=== PATIENT | female | born 1970 | race Caucasian/White ===

== ENCOUNTER 2019-01-06 16:17 | Emergency (ER) | payer BC ==
--- NOTE | 2019-01-06 16:34 | EDM.PDOC ---
ED HPI GENERAL MEDICAL PROBLEM - General Chief Complaint: Lower Extremity Injury/Pain Stated Complaint: INFECTION ON FOOT Time Seen by Provider: 01/06/19 16:21 - History of Present Illness INITIAL COMMENTS - FREE TEXT/NARRATIVE: HISTORY AND PHYSICAL: History of present illness: Patient's 48-year-old female history diabetes. Foot surgery with hardware placed for heel spur and Achilles tendon compromise who is noticed swelling redness increasing over the last week she missed a scheduled appointment 1 week prior this area is painful and has some excoriation with scant discharge noted Review of systems: As per history of present illness and below otherwise all systems reviewed and negative. Past medical history: As per history of present illness and as reviewed below otherwise noncontributory. Surgical history: As per history of present illness and as reviewed below otherwise noncontributory. Social history: No reported history of drug or alcohol abuse. Family history: As per history of present illness and as reviewed below otherwise noncontributory. Physical exam: HEENT: Atraumatic, normocephalic, pupils reactive, negative for conjunctival pallor or scleral icterus, mucous membranes moist, throat clear, neck supple, nontender, trachea midline. Lungs: Clear to auscultation, breath sounds equal bilaterally, chest nontender. Heart: S1S2, regular, negative for clicks, rubs, or JVD. Abdomen: Soft, nondistended, nontender. Negative for masses or hepatosplenomegaly. Negative for costovertebral tenderness. Pelvis: Stable nontender. Genitourinary: Deferred. Rectal: Deferred. Extremities: Patient has approximately 5 cm in diameter area of erythema warmth induration and tenderness posterior right foot overlying her distal Achilles neurovascular exams unremarkable. Neuro: Awake, alert, oriented. Cranial nerves II through XII unremarkable. Cerebellum unremarkable. Motor and sensory unremarkable throughout. Exam nonfocal. Diagnostics: CBC CMP blood culture 2 x-ray right foot Therapeutics: Saline 1 L bolus vancomycin 1 g IV Impression: #1 cellulitis right foot Definitive disposition and diagnosis as appropriate pending reevaluation and review of above. - Related Data Allergies Allergy/AdvReac Type Severity Reaction Status Date / Time No Known Allergies Allergy Verified 01/06/19 16:31 Home Meds: Home Meds Aspirin [Chrystal Chewable Aspirin] 81 mg PO DAILY 01/06/19 [History] Rosuvastatin [Crestor] 10 mg PO DAILY 01/06/19 [History] metFORMIN [Glucophage XR] 1,000 mg PO BIDMEALS 01/06/19 [History] traZODone HCl [Trazodone HCl] 50 mg PO DAILY 01/06/19 [History] Review of Systems - Review of Systems Review Of Systems: ROS reveals no pertinent complaints other than HPI. ED EXAM, GENERAL - Physical Exam Exam: See Below (See dictation) Course - Vital Signs Last Recorded V/S: Last Vital Signs Temp 36.1 C 01/06/19 16:33 Pulse 71 01/06/19 16:33 Resp 18 01/06/19 16:33 BP 140/73 01/06/19 16:33 Pulse Ox 99 01/06/19 16:33 - Orders/Labs/Meds Orders: Active Orders 24 hr Category Date Time Status Ankle Min 3V Rt [CR] Stat Exams 01/06/19 16:41 Ordered CMP [COMPREHENSIVE METABOLIC PN,CMP] [CHEM] Stat Lab 01/06/19 16:50 Received CULTURE BLOOD [BC] Stat Lab 01/06/19 16:50 Received CULTURE BLOOD [BC] Stat Lab 01/06/19 16:58 Results Sodium Chloride 0.9% [Normal Saline] Med 01/06/19 16:43 Active 10 ml IV ASDIRECTED PRN Sodium Chloride 0.9% [Normal Saline] 1,000 ml Med 01/06/19 16:42 Active IV .Bolus Sodium Chloride 0.9% [Saline Flush] Med 01/06/19 16:43 Active 10 ml FLUSH ASDIRECTED PRN Sodium Chloride 0.9% [Saline Flush] Med 01/06/19 16:43 Active 2.5 ml FLUSH ASDIRECTED PRN Vancomycin [Vancocin] 1 gm Med 01/06/19 17:01 Active Sodium Chloride 0.9% [Normal Saline] 250 ml IV ONETIME Blood Culture x2 Reflex Set [OM.PC] Stat Oth 01/06/19 16:41 Ordered Peripheral IV Insertion Adult [OM.PC] Stat Oth 01/06/19 16:43 Ordered Medication Orders Sodium Chloride (Normal Saline) 1,000 mls @ 999 mls/hr IV .Bolus ONE Stop: 01/06/19 17:42 Last Admin: 01/06/19 17:08 Dose: 999 mls/hr Vancomycin HCl 1 gm/ Sodium (Chloride) 250 mls @ 166 mls/hr IV ONETIME ONE Stop: 01/06/19 18:31 Last Admin: 01/06/19 17:22 Dose: 166 mls/hr Sodium Chloride (Saline Flush) 10 ml FLUSH ASDIRECTED PRN PRN Reason: Keep Vein Open Sodium Chloride (Saline Flush) 2.5 ml FLUSH ASDIRECTED PRN PRN Reason: Keep Vein Open Sodium Chloride (Normal Saline) 10 ml IV ASDIRECTED PRN PRN Reason: IV Use Labs: Laboratory Tests 01/06/19 Range/Units 16:50 WBC 7.22 (4.0-11.0) K/uL RBC 4.17 L (4.30-5.90) M/uL Hgb 12.1 (12.0-16.0) g/dL Hct 37.5 (36.0-46.0) % MCV 89.9 (80.0-98.0) fL MCH 29.0 (27.0-32.0) pg MCHC 32.3 (31.0-37.0) g/dL RDW Std Deviation 44.7 (28.0-62.0) fl RDW Coeff of Jayna 14 (11.0-15.0) % Plt Count 236 (150-400) K/uL MPV 10.00 (7.40-12.00) fL Neut % (Auto) 64.0 (48.0-80.0) % Lymph % (Auto) 27.0 (16.0-40.0) % [place] % (Auto) 7.2 (0.0-15.0) % Eos % (Auto) 1.5 (0.0-7.0) % Baso % (Auto) 0.3 (0.0-1.5) % Neut # (Auto) 4.6 (1.4-5.7) K/uL Lymph # (Auto) 2.0 (0.6-2.4) K/uL [place] # (Auto) 0.5 (0.0-0.8) K/uL Eos # (Auto) 0.1 (0.0-0.7) K/uL Baso # (Auto) 0.0 (0.0-0.1) K/uL Nucleated RBC % 0.0 /100WBC Nucleated RBCs # 0 K/uL Meds: Medications Generic Name Dose Route Start Last Admin Trade Name Alan PRN Reason Stop Dose Admin Sodium Chloride 1,000 mls @ 999 mls/hr 01/06/19 16:42 01/06/19 17:08 Normal Saline IV 01/06/19 17:42 999 mls/hr .Bolus ONE Administration Vancomycin HCl 1 gm/ Sodium 250 mls @ 166 mls/hr 01/06/19 17:01 01/06/19 17: 22 Chloride IV 01/06/19 18:31 166 mls/hr ONETIME ONE Administration Sodium Chloride 10 ml 01/06/19 16:43 Saline Flush FLUSH ASDIRECTED PRN Keep Vein Open Sodium Chloride 2.5 ml 01/06/19 16:43 Saline Flush FLUSH ASDIRECTED PRN Keep Vein Open Sodium Chloride 10 ml 01/06/19 16:43 Normal Saline IV ASDIRECTED PRN IV Use Discontinued Medications Generic Name Dose Route Start Last Admin Trade Name Andiq PRN Reason Stop Dose Admin Vancomycin HCl 1 gm/ Sodium 250 mls @ 166 mls/hr 01/06/19 16:43 01/06/19 17: 19 Chloride IV 01/06/19 18:13 Not Given ONETIME ONE Sodium Chloride Confirm 01/06/19 17:14 01/06/19 17:19 Normal Saline Administered 01/06/19 17:15 Not Given Dose 250 mls @ as directed .ROUTE .STK-MED ONE Vancomycin HCl Confirm 01/06/19 17:13 01/06/19 17:19 Vancomycin Administered 01/06/19 17:14 Not Given Dose 1 gm .ROUTE .STK-MED ONE Departure - Departure Time of Disposition: 17:25 Disposition: DC/Tfer to Acute Hospital 02 Condition: Good Clinical Impression: Cellulitis - Discharge Information Referrals: Francesco Carr MD [Primary Care Provider] - Forms: ED Department Discharge - My Orders Last 24 Hours: My Active Orders 01/06/19 16:41 Ankle Min 3V Rt [CR] Stat Blood Culture x2 Reflex Set [OM.PC] Stat 01/06/19 16:42 Sodium Chloride 0.9% [Normal Saline] 1,000 ml IV .Bolus 01/06/19 16:43 Sodium Chloride 0.9% [Normal Saline] 10 ml IV ASDIRECTED PRN Sodium Chloride 0.9% [Saline Flush] 10 ml FLUSH ASDIRECTED PRN Sodium Chloride 0.9% [Saline Flush] 2.5 ml FLUSH ASDIRECTED PRN Peripheral IV Insertion Adult [OM.PC] Stat 01/06/19 16:50 CMP [COMPREHENSIVE METABOLIC PN,CMP] [CHEM] Stat CULTURE BLOOD [BC] Stat 01/06/19 16:58 CULTURE BLOOD [BC] Stat 01/06/19 17:01 Vancomycin [Vancocin] 1 gm Sodium Chloride 0.9% [Normal Saline] 250 ml IV ONETIME - Assessment/Plan Last 24 Hours: My Active Orders 01/06/19 16:41 Ankle Min 3V Rt [CR] Stat Blood Culture x2 Reflex Set [OM.PC] Stat 01/06/19 16:42 Sodium Chloride 0.9% [Normal Saline] 1,000 ml IV .Bolus 01/06/19 16:43 Sodium Chloride 0.9% [Normal Saline] 10 ml IV ASDIRECTED PRN Sodium Chloride 0.9% [Saline Flush] 10 ml FLUSH ASDIRECTED PRN Sodium Chloride 0.9% [Saline Flush] 2.5 ml FLUSH ASDIRECTED PRN Peripheral IV Insertion Adult [OM.PC] Stat 01/06/19 16:50 CMP [COMPREHENSIVE METABOLIC PN,CMP] [CHEM] Stat CULTURE BLOOD [BC] Stat 01/06/19 16:58 CULTURE BLOOD [BC] Stat 01/06/19 17:01 Vancomycin [Vancocin] 1 gm Sodium Chloride 0.9% [Normal Saline] 250 ml IV ONETIME
[2019-01-06] MEDS ORDERED: Sodium Chloride 0.9% 1,000 ML IV ONE (16:42)
[2019-01-06] MEDS ORDERED: Sodium Chloride 0.9% 2.5 ML Syringe FLUSH PRN (16:43)
[2019-01-06] MEDS ORDERED: Sodium Chloride 0.9% 10 ML SDV IV PRN (16:43)
[2019-01-06] MEDS ORDERED: Sodium Chloride 0.9% 10 ML Syringe FLUSH PRN (16:43)
[2019-01-06] MEDS ORDERED: Vancomycin 1 GM SDV ONE (17:13)
[2019-01-06] MEDS ORDERED: Sodium Chloride 0.9% 250 ML ONE (17:14)
[2019-01-06 17:29] LABS: CHLORIDE,CL 102 mmol/L (98-107); SODIUM,NA 137 mmol/L (136-145)
--- NOTE | 2019-01-06 18:01 | CR ---
HISTORY: Right heel infection. Previous bone spur removal and Achilles tendon surgery in August. Site of incision is now red, hot, painful, with bruising starting yesterday. COMPARISON: None available. FINDINGS: AP, lateral and oblique views of the right ankle were obtained for a total of three views. There is moderate soft tissue swelling in the area of surgery at the insertion of the Achilles tendon. There is no sign of gas in the soft tissues or radiopaque foreign body. There is no sign of any residual posterior calcaneal spur. Small ossific fragments are seen located superior to the posterior calcaneus, consistent with previous tendinous injury. There is a tiny plantar calcaneal spur. No additional degenerative changes are seen elsewhere in the ankle. There is no sign of fracture or dislocation. The ankle mortise is intact. The talar dome is intact. There is no sign of a joint effusion. IMPRESSION: Moderate soft tissue swelling in the area of the insertion of the Achilles tendon consistent with cellulitis. No gas in the soft tissues to suggest abscess. No sign of any radiopaque foreign body. Tiny plantar calcaneal spur. Dictated by Glenn Carolina MD @ Jan 06 2019 5:56PM Signed by Dr. Glenn Carolina @ Jan 06 2019 5:59PM
== END 2019-01-06 19:04 ==
LOC: MW.ED 16:17
DX: L03.115 Cellulitis of right lower limb (principal); E11.9 Type 2 diabetes mellitus without complications; Z79.84 Long term (current) use of oral hypoglycemic drugs; Z79.82 Long term (current) use of aspirin; Z79.899 Other long term (current) drug therapy
CPT/HCPCS: 36415; 73610; 80053; 85025; 87040; 96360; 96365; 96366; 99284; J3370; J7040; J7050; 99283